=== PATIENT | male | born 1960 | race Caucasian/White ===

== ENCOUNTER → 2016-10-28 | Day surgery (SDC) | payer OTHER ==
[2016-10-28 06:52] LABS: HCT 42.7 % (42.0-52.0); HGB 14.9 g/dl (13.2-18.0); MCH 30.5 pg (25.0-31.0); MCHC 34.9 g/dL (32.0-36.0); MCV 87.3 fL (78.0-100.0); MPV 9.4 fL (6.0-9.5); RBC 4.89 M/uL (4.70-6.00); RDW 12.5 % (11.5-14.0); WBC 5.5 K/uL (4.0-10.5)
== END | disposition home or self-care (01) ==
LOC: FAS 06:03
PROVIDERS: Legal Medicine
DX: G56.01 Carpal tunnel syndrome, right upper limb (principal); M19.90 Unspecified osteoarthritis, unspecified site; Z90.49 Acquired absence of other specified parts of digestive tract; Z98.890 Other specified postprocedural states
CPT/HCPCS: 36415; J0690; J1100; J2405; J2704; J2795; J3010

== ENCOUNTER → 2016-11-11 | Day surgery (SDC) | payer OTHER ==
[~2016-11-11] VITALS: Ht 172.7 cm; Wt 80.8 kg
[2016-11-11 08:13] LABS: HCT 42.4 % (42.0-52.0); MCH 30.3 pg (25.0-31.0); MCHC 35.4 g/dL (32.0-36.0); MCV 85.7 fL (78.0-100.0); MPV 9.3 fL (6.0-9.5); RBC 4.95 M/uL (4.70-6.00); RDW 12.4 % (11.5-14.0); WBC 6.3 K/uL (4.0-10.5)
== END | disposition home or self-care (01) ==
LOC: FAS 11-10 12:00
PROVIDERS: Legal Medicine
DX: G56.02 Carpal tunnel syndrome, left upper limb (principal); G56.12 Other lesions of median nerve, left upper limb; Z86.010 Personal history of colon polyps; Z90.49 Acquired absence of other specified parts of digestive tract; Z79.1 Long term (current) use of non-steroidal anti-inflammatories (NSAID); Z79.899 Other long term (current) drug therapy; Z98.890 Other specified postprocedural states
CPT/HCPCS: 36415; J0690; J2405; J2704; J2795; J3010

== ENCOUNTER → 2021-06-28 | Day surgery (SDC) | payer OTHER ==
[~2021-06-28] VITALS: Ht 172.7 cm; Wt 80.8 kg
[~2021-06-28] MED LIST: ARTHRITIS PAIN650 MG PO; GLUCOSAMINE PO; VITAMIN B COMPLEX PO; [UNRECOGNIZED DRUG - OTHER] PO
[2021-06-28 13:43] LABS: HCT 42.9 % (42.0-52.0); HGB 14.7 g/dl (13.2-18.0); MCH 31.1 pg (25.0-31.0); MCHC 34.3 g/dL (32.0-36.0); MCV 90.7 fL (78.0-100.0); MPV 9.3 fL (6.0-9.5); RBC 4.73 M/uL (4.70-6.00); RDW 11.9 % (11.5-14.0); WBC 6.5 K/uL (4.0-10.5)
== END | disposition home or self-care (01) ==
LOC: FAS 08:00
PROVIDERS: Legal Medicine
DX: M75.101 Unspecified rotator cuff tear or rupture of right shoulder, not specified as traumatic (principal); M19.011 Primary osteoarthritis, right shoulder; G89.18 Other acute postprocedural pain; I10 Essential (primary) hypertension
CPT/HCPCS: 36415; C1713; J0171; J0690; J2250; J2405; J2704; J2710; J2795; J3010; J7120